=== PATIENT | male | born 1955 | race Caucasian/White ===

== ENCOUNTER 2020-03-15 08:37 | Day surgery (SDC) | payer MEDICARE ==
[~2020-03-15] VITALS: Ht 185.4 cm; Wt 77.1 kg
[~2020-03-15 08:37] MED LIST: IBUP800 PO
--- NOTE | 2020-03-15 09:44 | NUR ---
Surgical site prepped with 2% Chlorhexidine cloth wipe. History, Chart, Medications and Allergies reviewed before start of procedure. Lungs clear T/O to Auscultation. Patient confirms NPO status and agrees with scheduled surgery. Pre-Op teaching done. Pt verbalizes understanding. Patient reports completing Chlorhexadine shower X2 prior to admission to hospital. Pt NWB.
--- NOTE | 2020-03-15 10:00 | NUR ---
PROCEDURE CX PER DR. POLLOCK R/T SMALL WOUND ON RIGHT LOWER ANKLE AND TOE. OK TO BE DISCHARGED HOME. BROTHER CALLED AND WILL PROVIDE RIDE HOME.
--- NOTE | 2020-03-15 10:02 | NUR ---
TWO SMALL WOUNDS NOTED TO RIGHT LEG, ONE DIME SIZE AT ANKLE AND OPEN BLISTER ON RIGHT MIDDLE TOE. DR. POLLOCK AWARE, PROCEDURE CX
== END 2020-03-15 23:21 | disposition home or self-care (01) ==
LOC: ORSCMMR 08:37 → ORD 10:45 → ORSCMMR 10:45
DX: M17.11 Unilateral primary osteoarthritis, right knee (principal); Z53.9 Procedure and treatment not carried out, unspecified reason
CPT/HCPCS: J0171; J0690; J0735; J1885; J2250; J2704; J2795; J3010; J7120

== ENCOUNTER 2020-09-20 11:37 | Inpatient (IN) | payer MEDICARE, SELFPAY ==
[~2020-09-20] VITALS: Ht 185.4 cm; Wt 77.2 kg
[~2020-09-20 11:37] MED LIST changes: +CIDAFLEX TABLE1 EAC1 PO
--- NOTE | 2020-09-20 17:50 | NUR ---
pt arrived to room on own bed, a/o x 4, pleasant/cooperative, post op vs commenced and stable. pt provided with PO fluids/snack, denies n/v. pt oriented to room/call light. operative R knee with cryotherapy and aquacel c/d/i, calos hose and pas in place. pt with sensation at L2, unable to wiggle toes, cap refill <3 sec, toes pink/cool
[2020-09-21 04:35] LABS: BASOPHILS ABSOLUTE AUTO 0.03 K/mm3 (0.00-0.23); BASOPHILS PERCENT AUTO 0 % (0-2); EOSINOPHILS ABSOLUTE AUTO 0.01 K/mm3 (0.00-0.68); EOSINOPHILS PERCENT AUTO 0 % (0-6); Hematocrit 39.4 % (37.0-53.0); Hemoglobin 13.3 g/dL (13.5-17.5); IMMATURE GRAN ABSOLUTE AUTO 0.04 K/mm3 (0.00-0.10); IMMATURE GRAN PERCENT AUTO 0 % (0-1); LYMPHOCYTES ABSOLUTE AUTO 1.02 K/mm3 (0.84-5.20); LYMPHOCYTES PERCENT AUTO 10 % (21-46); MONOCYTES ABSOLUTE AUTO 0.83 K/mm3 (0.16-1.47); MONOCYTES PERCENT AUTO 8 % (4-13); Mean Corpuscular HGB 30.7 pg (26.0-34.0); Mean Corpuscular HGB Conc 33.8 g/dL (31.5-36.5); Mean Corpuscular Volume 91 fL (80-100); Mean Platelet Volume 9.8 fL (9.1-12.4); NEUTROPHILS ABSOLUTE AUTO 8.27 K/mm3 (1.96-9.15); NEUTROPHILS PERCENT AUTO 81 % (41-73); Platelet Count 184 K/mm3 (150-400); RDW Coefficient Variation 13.5 % (11.7-14.2); RDW Standard Deviation 46.1 fL (35.1-46.3); Red Blood Cell Count 4.33 M/mm3 (4.30-5.90)
[2020-09-21 04:53] LABS: Anion Gap 4 mmol/L (6-16); Blood Urea Nitrogen 14 mg/dL (8-24); Bun/Creatinine Ratio 22.5 (12.0-20.0); CO2, Blood 29 mmol/L (21-32); Calcium, Blood 8.3 mg/dL (8.5-10.1); Chloride, Blood 107 mmol/L (98-108); Creatinine, Blood 0.62 mg/dL (0.60-1.20); Glomerular Filtration Rate >60 (60-); Glucose, Blood 101 mg/dL (70-99); Potassium, Blood 4.3 mmol/L (3.5-5.5); Sodium, Blood 140 mmol/L (136-145)
--- NOTE | 2020-09-21 05:00 | NUR ---
AMBULATION AMBULATED TO BATHROOM WITH FWW AND GAIT BELT IN PLACE. PT IS IMPULSIVE AND UNABLE TO FOLLOW DIRECTIONS DUE TO URGECY TO MOVE FROM POINT A TO POINT B. REITERATED NEED TO USE BED TO PUSH UP AND NOT PULL UP ON WALKER. ALSO REITERATED NEED TO PLACE ONE FOOT IN FRONT OF OTHER AFTER PT'S LEGS GOT TANGLED AND HE PLACED ALL OF HIS BODY WEIGHT ON TOP OF THE WALKER. HE STATED, "I HAD TO DO THAT, I WAS ABOUT TO FALL." NURSING REITERTED NEED TO FOLLOW DIRECTIONS GIVEN BY NURSING OR PT. REQUIRES 2 PERSON MAX ASSIST. PLACED ON POTTY AND 1 UNMEASURED VOID NOTED. MAX 2 PERSON ASSIST BACK TO BED, PT TOLERATED BETTER THAN AMBULATION TO COMMODE. PLACED SELF IN BED AND REPOSITIONED WITH EASE. MEDICATED FOR PAIN PER EMAR. DENEIS FURTHER NEEDS AT THIS TIME. SAFETY MEASURES IN PLACE. WILL CONTINNUE TO MONITOR.
--- NOTE | 2020-09-21 05:22 | NUR ---
SHIFT SUMMARY LYING IN SEMI FOWLERS WITH EYES CLOSED. HAS RESTED OFF AND ON THROUGHOUT SHIFT. NO FURTHER SIGNIFICANT CHANGES NOTED. RIGHT KNEE AQUACEL WITH SMALL MOUONT OF SHADOWING AFTER AMBULATION NOTED. POLAR EVAN REMAIN IN PLACE FOR COMFORT. AMBULATION WITH FWW AND GAIT BELT TOLERATED WELL. SL PIV AFTER PT ABLE TO TOLERATE FLUIDS. DENIES N/V, OR FURTHER NEEDS AT THIS TIME. SAFETY MEASURES IN PLACE. WILL CONTINUE TO MONITOR AND GIVE HAND OFF TO ONCOMING SHIFT USING SBAR.
--- NOTE | 2020-09-21 08:32 | NUR ---
WORKING WITH PHYSICAL TX.
--- NOTE | 2020-09-21 17:55 | NUR ---
SUMMARY WORKED WITH PT/OT TODAY, 2 PERSON MAX ASSIST, OOB TO CHAIR TODAY, PT IS IMPULSIVE AND HAS POOR COORDINATION, DOESN'T SEEM TO UNDERSTAND PRECAUTIONS AND DIRECTIONS FOR SAFE TRANSFERS PER THERAPY, REPORTS PAIN IS TOLERABLE WITH PO PAIN MEDS, R KNEE DRESSING HAS BEEN DRAINING MODERATE AMOUNT OF SANGUINOUS DRAINAGE, DRESSING HAS BEEN CHANGED X3 TODAY, DR. POLLOCK AWARE, 4X4 GAUZE, ABD PAD AND NADIA WRAP APPLIED THIS EVENING, PT STATES HE HAS BEEN DOING EXERCISES IN BED INSTRUCTED BY PHYSICAL THERAPY, NO ACUTE CHANGES THIS SHIFT.
--- NOTE | 2020-09-22 05:49 | NUR ---
SHIFT ASSESSMENT LYING IN SEMI FOWLERS WITH EYES OPEN WHIE WATCHING [employer] NEWS. HAS LIGHT HEARTED ATTEMPTS TO DISCUSS HEADLINES. IS VERY CONCRETE WITH THOUGHTS AND LEARNED CARE PLAN. REITERATED TO NURSING THAT HE IS GOING TO REHAB AND GOING TO GET STRONG. AAO X4, ROSE, FAC, HAS BEEN COOPERATIVE AND PLEASANT WITH CARE. NO SIGNIFICANT CHANGES NOTED. PAIN MANAGED WITH SCHEDULED MEDS. SL PIV IS PATENT. SCD'S, LADAN, AND POLAR PAC IN PLACE. NADIA WRAP OVER AQUACELL IN PLACE. DENIES FURTHER NEEDS AT THIS TIME. SAFETY MEASURES IN PLACE. WILL CONTINUE TO MONITOR AND GIVE HAND OFF TO ONCOMING SHIFT USING SBAR.
--- NOTE | 2020-09-22 07:00 | NUR ---
RECVD REPORT FROM PREVIOUS SHIFT RN SID, PT LYING IN BED AWAKE, WISHES TO GET OOB ONTO THE COMMODE, A/O X 4, CONCRETE THINKING ABOUT THE PROCESSES OF JOINT PROGRAM; USING GB/FWW, STAND PT AT BEDSIDE TO WALK IN PLACE WITH PT'S OWN SHOES ON. L LEG WITH SHUFFLE/DRAG, OPERATIVE LEG WITH NADIA WRAP AND ABD UNDERNEATH WITH SHADOWING, NOTED SIZE OF SHADOWING AND WILL MONITOR. PT UP TO COMMODE STAND/PIVOT.
--- NOTE | 2020-09-22 15:36 | NUR ---
physical therapy in with patient
--- NOTE | 2020-09-22 17:41 | NUR ---
summary: pt remains a/o x 4, concrete in thinking, has argued with this RN about many orthopedic joint program procedures, such as being up in the chair for meals vs in bed, standing at regular intervals, incision dressing tightness, etc. pt has been educated/reminded of the program procedures. vss, no acute changes. pt has voided, is tolerating diet, is up in chair for meals, has had one visitor this shift, has worked with PT x 2 this shift. Pt states pain is controlled per aug.
--- NOTE | 2020-09-23 03:28 | NUR ---
HIMSELF AROUND IN BED."
--- NOTE | 2020-09-23 03:56 | NUR ---
SHIFT SUMMARY POD3 R TKA W/ DR. POLLOCK. PT SLEPT GOOD T/O SHIFT. NO ACUTE CHANGES OVERNIGHT EXCEPT HE HAD BEEN VOIDING. ENC PT TO VOID/STAND, USE URINAL/ BSC BUT STATED NOT FEELING TO URINATE. BLADDER SCANNED PT, RETAINING 489ML URINE, STRAIGHT CATH WITH AN OUTPUT OF 725ML. VSS. PT REPORTS PAIN ON R KNEE, PAIN MANAGED WITH TORADOL, TYLENOL AND ULISES 10MG Q4. PT DENIES NUMBNESS AND TINGLING SENSATION. TOLERATING PO INTAKE DENIES NAUSEA AND VOMITING. PASSING FLATUS. CALL LIGHT WITHIN REACH. WILL PROVIDE REPORT TO UPCOMING MORNING NURSE.
[2020-09-23 15:01] LABS: Influenza A, PCR NEGATIVE (NEGATIVE); Influenza B, PCR NEGATIVE (NEGATIVE); Resp Syncytial Virus, PCR NEGATIVE (NEGATIVE); SARS-Cov-2 (COVID-19) PCR, MMC NEGATIVE (NEGATIVE)
--- NOTE | 2020-09-23 16:43 | NUR ---
REPORT PHONED TO [facility]
--- NOTE | 2020-09-23 17:32 | NUR ---
1715 discharged via wheelchair van to transport to [facility]
== END 2020-09-23 17:31 | disposition home or self-care (01) | DRG 470 ==
LOC: ORSCMMR 11:37 → SURS 11:37 → ORSCMMR 11:38 → ORD 15:00 → ORSCMMR 15:00 → SURS 17:37 → ORSCMMR 09-21 15:53 → SURS 09-21 15:53
PROVIDERS: ADMIT Orthopaedic Surgery
PROC: 8E0Y0CZ Robotic Assisted Procedure of Lower Extremity, Open Approach (ICD-10-PCS; 2020-09-20)
PROC: 0SRC0J9 Replacement of Right Knee Joint with Synthetic Substitute, Cemented, Open Approach (ICD-10-PCS; principal; 2020-09-20 15:00)
DX: M17.11 Unilateral primary osteoarthritis, right knee (principal); M21.371 Foot drop, right foot
CPT/HCPCS: 0241U; 36415; 73560-RT; 80048; 83735; 85025; 97110; 97110-CQ; 97112; 97116; 97162; 97530; 97530-CQ; A9270; C1713; C1776; J0171; J0690; J0735; J1100; J1885; J2250; J2405; J2704; J2795; J3010; J7120

== ENCOUNTER 2022-06-03 14:24 | Inpatient (IN) | payer MEDICARE ==
[~2022-06-03] VITALS: Ht 180.3 cm; Wt 81.7 kg
[2022-06-03 22:16] LABS: Influenza A, PCR NEGATIVE (NEGATIVE); Influenza B, PCR NEGATIVE (NEGATIVE); Resp Syncytial Virus, PCR NEGATIVE (NEGATIVE); SARS-Cov-2 (COVID-19) PCR, MMC NEGATIVE (NEGATIVE)
--- NOTE | 2022-06-04 16:57 | NUR ---
1555- PT TO PACU TO GET READY FOR OR. TURNS OUT THE PATIENT HAD MEATLOAF AND CARROTS AT 1 PM. SURGERY POSTPONED TO TOMORROW.
--- NOTE | 2022-06-04 18:40 | NUR ---
SHIFT SUMMARY PT A&OX4, VSS/RA, JAZMINE PO, VOIDING/URINAL, BEDREST, DENIES NEED FOR PAIN MEDS AT THIS TIME. PLAN FOR SURGERY TOMORROW/NPO MIDNIGHT. WILL REPORT TO ONCOMING NOC RN.
--- NOTE | 2022-06-05 05:27 | NUR ---
SHIFT SUMMARY A/OX3- BEDREST THROUGHOUT THE SHIFT. VOIDING WELL IN URINAL. VITAL SIGNS STABLE. PAIN MANAGED W/ PO PAIN MEDICATION THROUGHOUT SHIFT. NPO SINCE MIDNIGHT. BUCKS TRACTION PLACED AT BEGINING OF SHIFT PER SURGEON ORDER. PLAN FOR PT TO GO TO OR TODAY. WILL CONTINUE TO MONITOR AND REPORT TO ONCOMING RN.
[2022-06-05 05:47] LABS: BASOPHILS ABSOLUTE AUTO 0.07 K/mm3 (0.00-0.23); BASOPHILS PERCENT AUTO 1 % (0-2); EOSINOPHILS ABSOLUTE AUTO 0.21 K/mm3 (0.00-0.68); EOSINOPHILS PERCENT AUTO 3 % (0-6); Hematocrit 36.6 % (37.0-53.0); Hemoglobin 12.7 g/dL (13.5-17.5); IMMATURE GRAN ABSOLUTE AUTO 0.03 K/mm3 (0.00-0.10); IMMATURE GRAN PERCENT AUTO 0 % (0-1); LYMPHOCYTES ABSOLUTE AUTO 0.86 K/mm3 (0.84-5.20); LYMPHOCYTES PERCENT AUTO 10 % (21-46); MONOCYTES ABSOLUTE AUTO 0.86 K/mm3 (0.16-1.47); MONOCYTES PERCENT AUTO 10 % (4-13); Mean Corpuscular HGB 30.8 pg (26.0-34.0); Mean Corpuscular HGB Conc 34.7 g/dL (31.5-36.5); Mean Corpuscular Volume 89 fL (80-100); Mean Platelet Volume 9.4 fL (9.1-12.4); NEUTROPHILS ABSOLUTE AUTO 6.22 K/mm3 (1.96-9.15); NEUTROPHILS PERCENT AUTO 76 % (41-73); Platelet Count 176 K/mm3 (150-400); RDW Coefficient Variation 13.2 % (11.7-14.2); RDW Standard Deviation 42.8 fL (35.1-46.3); Red Blood Cell Count 4.13 M/mm3 (4.30-5.90); White Blood Cell Count 8.25 K/mm3 (4.00-11.30)
[2022-06-05 06:09] LABS: Albumin, Blood 2.8 g/dL (3.4-5.0); Bilirubin, Total 1.2 mg/dL (0.1-1.0); Bun/Creatinine Ratio 31.1 (12.0-20.0); Calcium, Blood 8.2 mg/dL (8.5-10.1); Creatinine, Blood 0.58 mg/dL (0.60-1.20); Globulin, Blood 2.8 g/dL (2.2-4.0); Magnesium, Blood 2.1 mg/dL (1.6-2.4); Potassium, Blood 4.4 mmol/L (3.5-5.5); Total Protein, Blood 5.6 g/dL (6.4-8.2)
--- NOTE | 2022-06-05 16:47 | NUR ---
SHIFT SUMMARY PT ADMITTED FOR L HIP DISLOCATION. PT'S CASE REQUIRES A HIGHER LEVEL OF CARE AND HE IS TO BE TRASFERRED TO [facility] WHEN A BED IS AVAILABLE. BUCKS TRACTION REMOVED DUE TO PATIENT DISCOMFORT. PT IS UNABLE TO GO HOME TO FOLLOW UP OUTPATIENT BECAUSE HE IS UNABLE TO MOVE HIS LEFT LEG AND CANNOT MANEUVER A WHEELCHAIR IN HIS CURRENT HOUSING CONDITIONS. PT IS A/O X4; PLEASANT AND COOPERATIVE WITH CARE. TREATED FOR PAIN PER EMR.
--- NOTE | 2022-06-06 05:16 | NUR ---
SHIFT SUMMARY A/O X4- BEDREST THROUGHOUT SHIFT. VITAL SIGNS STABLE. PAIN MANAGED W/ PO PAIN MEDICATIONS. VOIDING WELL. TOLERATING PO INTAKE. AWAITING TRANSFER TO ANOTHER HOSPITAL FOR SURGERY OF L HIP. WILL CONTINUE TO MONITOR AND REPORT TO ONCOMING RN.
--- NOTE | 2022-06-07 04:00 | NUR ---
SHIFT SUMMARY NO ACUTE CHANGES TO REPORT THIS SHIFT, LEFT HIP PAIN MANANGED PER EMAR. STILL AWAITING TRANSFER TO HIGHER LEVEL OF CARE TO FURTHER MANAGE DISLOACTED HIP. VITALS STABLE. PT SLEEPS ON AND OFF T/O THE NIGHT. BED IN LOWEST POSITION, CALL LIGHT WITHIN REACH.
[2022-06-07 06:02] LABS: BASOPHILS ABSOLUTE AUTO 0.06 K/mm3 (0.00-0.23); BASOPHILS PERCENT AUTO 1 % (0-2); EOSINOPHILS ABSOLUTE AUTO 0.21 K/mm3 (0.00-0.68); EOSINOPHILS PERCENT AUTO 3 % (0-6); Hematocrit 38.4 % (37.0-53.0); Hemoglobin 13.3 g/dL (13.5-17.5); IMMATURE GRAN ABSOLUTE AUTO 0.02 K/mm3 (0.00-0.10); IMMATURE GRAN PERCENT AUTO 0 % (0-1); LYMPHOCYTES ABSOLUTE AUTO 1.06 K/mm3 (0.84-5.20); LYMPHOCYTES PERCENT AUTO 13 % (21-46); MONOCYTES ABSOLUTE AUTO 0.95 K/mm3 (0.16-1.47); MONOCYTES PERCENT AUTO 12 % (4-13); Mean Corpuscular HGB 30.8 pg (26.0-34.0); Mean Corpuscular HGB Conc 34.6 g/dL (31.5-36.5); Mean Corpuscular Volume 89 fL (80-100); Mean Platelet Volume 9.6 fL (9.1-12.4); NEUTROPHILS ABSOLUTE AUTO 5.76 K/mm3 (1.96-9.15); NEUTROPHILS PERCENT AUTO 72 % (41-73); Platelet Count 196 K/mm3 (150-400); RDW Coefficient Variation 13.1 % (11.7-14.2); RDW Standard Deviation 42.8 fL (35.1-46.3); Red Blood Cell Count 4.32 M/mm3 (4.30-5.90); White Blood Cell Count 8.06 K/mm3 (4.00-11.30)
[2022-06-07 06:23] LABS: Albumin, Blood 2.9 g/dL (3.4-5.0); Albumin/Globulin Ratio 0.9 (0.8-1.8); Bun/Creatinine Ratio 36.4 (12.0-20.0); Calcium, Blood 8.5 mg/dL (8.5-10.1); Creatinine, Blood 0.61 mg/dL (0.60-1.20); Globulin, Blood 3.3 g/dL (2.2-4.0); Potassium, Blood 4.5 mmol/L (3.5-5.5); Total Protein, Blood 6.2 g/dL (6.4-8.2)
--- NOTE | 2022-06-07 14:39 | NUR ---
PT RESTING IN BED, DENIES ANY NEED FOR PAIN MEDS THIS TIME, REPORT GIVEN TO PETER MENDOZA TO ASSUME CARE OF PT.
--- NOTE | 2022-06-08 05:07 | NUR ---
SHIFT SUMMARY NO ACUTE CHANGES TO REPORT THI SHIFT, PLAN OF CARE REMAINS UNCHANGED. PENDING [place] TRANSFER STILL WAITING FOR BED AT [facility]. PT MEDICATED FOR PAIN PRN T/O THE SHIFT. BEDREST, CALLS APPROPRIATELY. BED IN LOWEST POSITION, CALL LIGHT WITHIN REACH.
--- NOTE | 2022-06-08 18:26 | NUR ---
SHIFT SUMMARY PT A&OX4, VSS/RA, JAZMINE PO, VOIDING/URINAL, PAIN MANAGED WITH TYLENOL AND OXY 5 MG PRN, STAND PIVOT W/FWW TO CHAIR/BED W/2PP MAX ASSIST. WILL REPORT TO ONCOMING NOC RN.
--- NOTE | 2022-06-08 23:05 | NUR ---
DISCUSSED BUCKS TRACTION WITH THE PATIENT, PT REFUSED. DISCUSSED IV AND PT REFUSED. STATES THAT HE DOES NOT NEED ONE. ENCOURAGED REPOSITIONING AND PT EXPRESSED THAT HE WAS NOT WANTING TO BE TURNED OR REPOSITIONED Q2 HOURS. ENCOURAGED THE PT TO USE CALL LIGHT.
--- NOTE | 2022-06-09 05:24 | NUR ---
SHIFT SUMMARY: A&0. PAIN MODERATELY MANAGED PER EMAR ORDERS AND REPOSITIONING. PT REFUSED MAJORITY OF REPOSITION ATTEMPTS T/O THE NIGHT. EATING, DRINKING, AND VOIDING. YET TO HAVE A BM, BOWEL CARE CONTINUED. NO ACUTE CHANGES NOTED. PT REMAINS IN BED RESTING WITH CALL LIGHT IN REACH. AWAITING TRANSFER TO HIGHER LEVEL CARE.
--- NOTE | 2022-06-09 18:52 | NUR ---
SHIFT SUMMARY PT A&OX4, VSS/RA, JAZMINE PO, VOIDING/URINAL, PAIN MANAGED WITH TYLENOL AND OXY 10 MG Q4P. BEDREST/REPOSITIONS SELF. WILL REPORT TO ONCOMING SUNIL RN.
--- NOTE | 2022-06-10 04:44 | NUR ---
SHIFT SUMMARY NO ACUTE CHANGES THIS SHIFT. AOX4. REPORTS 4-6/10 PAIN IN L HIP, MEDICATED 2X c 10MG OXYCODONE, STATES PAIN RELIEF LONG NO MOVEMENT. LLE INTERNALLY ROTATED, REPORTS CHRONIC NUMBNESS & INABILITY TO WIGGLE TOES. AWAITING BED AVAILABILITY @[facility]. PT ABLE TO MAKE NEEDS KNOWN, CALL LIGHT IN REACH.
--- NOTE | 2022-06-10 15:14 | NUR ---
PT HAD ORDERS FOR BUX TRACTION, REFUSED
--- NOTE | 2022-06-10 17:52 | NUR ---
PT STATES FEELS DOING OKAY TODAY. PAIN MANAGED WITH AVAIL MEDS. HAVE BEEN REMINDING HIM TO PLACE PILLOW BETWEEN BED FOOTRAIL AND HIS FOOT FOR REINFORCEMENT OF DROPFOOT. KEEPING HIS FOOT FROM TURNING INTERNAL ROTATION. DR DID AGREE TO MAKE HIM NO IV ORDER. PT HS BEEN REFUSING LEG BRIX . CONTINUE TO PEND TRANSFER TO [facility] FOR FURTHER WORKUP. BED IN LOW POSITION, CALL LITE IN REACH, CALLS APPROP
--- NOTE | 2022-06-11 05:35 | NUR ---
SHIFT SUMMARY NO ACUTE CHANGES THIS SHIFT. AOX4. VSS. REPORTS 6-10/10 PAIN IN L HIP DISLOCATION, MEDICATED 2X c 650MG TYLENOL & 3X c 10MG OXYCODONE, PT ABLE TO REST COMFORTABLY AFTER MEDICATION & REPOSITIONING. L LEG INTERNALLY ROTATED, CAP REFIL @4 SEC, REPORTS CHRONIC NUMBNESS & COLD TOES. AWAITING BED @[facility]. CALL LIGHT IN REACH & PT ABLE TO MAKE NEEDS KNOWN.
--- NOTE | 2022-06-11 15:27 | NUR ---
SHIFT SUMMARY: LEFT HIP DISLOCATION NO SIGNIFICANT CHANGES. PATIENT WAS ABLE TO SIT ON THE SIDE OF THE BED AND TOLERATED IT WELL. PAIN IS MANAGED WITH OXY AND TYLENOL. PATIENT DENIES ANY NEW NUMBNESS OR TINGLING SINCE HE HAS A HX OF NEUROPATHY. HE IS VOIDING AND TOLERATING PO INTAKE. PATIENT REPORTS HAVING A BM YESTERDAY. CALLS APPROPRIATELY. CALL LIGHT WITHIN REACH. THE PLAN IS STILL AWAITING A BED AT [facility] IN [place].
--- NOTE | 2022-06-11 19:21 | NUR ---
NO ACUTE CHANGES SINCE ASSUMPTION OF CARE, PT RESTING IN BED. CONTINUES TO DENY FURTHER NEEDS. REPORTS PAIN MANAGED PER EMAR.
--- NOTE | 2022-06-12 05:33 | NUR ---
SHIFT SUMMARY NO ACUTE CHANGES THIS SHIFT. VSS. REPORTS 6-910 PAIN IN L HIP DISLOCATION, MEDICATED c PRN TYLENOL & 10MG OXYCODONE & PT ABLE TO REST WELL. AWAITING BED @[facility] FOR L HIP REPAIR. L FOOT ELEVATED ON PILLOW. CALL LIGHT IN REACH & PT ABLE TO MAKE NEEDS KNOWN.
--- NOTE | 2022-06-12 17:06 | NUR ---
SHIFT SUMMARY PT A&OX4, VSS/RA, JAZMINE PO, VOIDING WELL/URINAL, PAIN MANAGED WELL WITH 10 OXY AND TYLENOL, STAND PIVOT WITH 3 PP MAX ASSIST TO CHAIR/BACK TO BED-VERY HEAVY TRANSFER; PT REP COMFORTABLE IN CHAIR DURING DAY, REPOSITIONS SELF IN BED. PLEASANT & COOPERATIVE WITH CARE. WILL REPORT TO ONCOMING NOC RN.
--- NOTE | 2022-06-13 06:18 | NUR ---
SHIFT SUMMARY NO ACUTE CHANGES THIS SHIFT. AOX4. VSS. L HIP DISLOCATED. REPORTS PAIN IN BILAT HIPS/LEGS, MEDICATED 3X c OXYCODONE & 1X c TYLENOL, PT ABLE TO REST WELL T/O NIGHT. AWAITING BED @[facility] FOR HIP REPAIR. CALL LIGHT IN REACH & PT ABLE TO MAKE NEEDS KNOWN.
--- NOTE | 2022-06-13 14:35 | NUR ---
SHIFT SUMMARY PT A&OX4, VSS/RA, JAZMINE PO, VOIDING WELL/BMS++ TODAY - STOOL SOFTENER ORDERS CHANGED TO PRN, LIFT USED FOR BED/CHAIR; PT REPOSITIONS SELF IN BED AND DOES REGULAR PHYSICAL THERAPY EXERCISES, PAIN MANAGED WITH OXY 10 MG AND TYLENOL. WILL REPORT TO ONCOMING NOC RN.
[2022-06-14 05:10] LABS: BASOPHILS ABSOLUTE AUTO 0.08 K/mm3 (0.00-0.23); BASOPHILS PERCENT AUTO 1 % (0-2); EOSINOPHILS ABSOLUTE AUTO 0.19 K/mm3 (0.00-0.68); EOSINOPHILS PERCENT AUTO 2 % (0-6); IMMATURE GRAN ABSOLUTE AUTO 0.03 K/mm3 (0.00-0.10); IMMATURE GRAN PERCENT AUTO 0 % (0-1); LYMPHOCYTES ABSOLUTE AUTO 1.08 K/mm3 (0.84-5.20); LYMPHOCYTES PERCENT AUTO 13 % (21-46); MONOCYTES ABSOLUTE AUTO 1.04 K/mm3 (0.16-1.47); MONOCYTES PERCENT AUTO 12 % (4-13); Mean Corpuscular HGB 30.6 pg (26.0-34.0); Mean Corpuscular HGB Conc 34.3 g/dL (31.5-36.5); Mean Corpuscular Volume 89 fL (80-100); NEUTROPHILS ABSOLUTE AUTO 6.15 K/mm3 (1.96-9.15); NEUTROPHILS PERCENT AUTO 72 % (41-73); Platelet Count 270 K/mm3 (150-400); RDW Coefficient Variation 12.9 % (11.7-14.2); RDW Standard Deviation 41.8 fL (35.1-46.3); Red Blood Cell Count 3.92 M/mm3 (4.30-5.90); White Blood Cell Count 8.57 K/mm3 (4.00-11.30)
--- NOTE | 2022-06-14 05:17 | NUR ---
SHIFT SUMMARY: A&0X4. VSS. IND IN ROOM WITH REPOSITIONING, REQUIRES MODERATE ASSISTANCE TO REPOSITION BLE. MEDICATED WITH OXYCODONE 10 MG AND TYLENOL, RESPONDED WELL. ENCOURAGED REGULAR REPOSITIONING. X4 SMALL/SOFT BM THIS SHIFT. CALLS APPROPRIATELY. EATING, DRINKING, VOIDING. AWAITING TRANSFER TO HIGHER LEVEL CARE.
[2022-06-14 05:32] LABS: Bun/Creatinine Ratio 37.8 (12.0-20.0); Calcium, Blood 8.6 mg/dL (8.5-10.1); Creatinine, Blood 0.56 mg/dL (0.60-1.20); Potassium, Blood 4.7 mmol/L (3.5-5.5)
--- NOTE | 2022-06-14 08:07 | NUR ---
TRANSFER UPDATE CALL FROM [facility] TRANSFER [place], PATIENT REMAINS ON LIST WITH NO FORECAST FOR PLACEMENT THEY CONTINUE TO BE FULL & HOLDING PATIENTS.
--- NOTE | 2022-06-14 16:06 | NUR ---
SHIFT SUMMARY: NO SIGNIFICANT CHANGES THROUGHOUT SHIFT. PAIN IS MANAGED WITH PO OXY AND TYLENOL. LEFT HIP IS SWOLLEN AND HE NEEDS HELP REPOSITIONING HIS LEFT LEG. HE IS ABLE TO MOVE FINGERS AND TOES WHEN ASKED. HE IS A MINIMAL ASSIST ON BEDPAN AND HE WILL REPOSITION HIMSELF IN BED. HE IS VOIDING AND HAVING MULTIPLE SOFT BMS DURING SHIFT. TOLERATING PO INTAKE. CALLS APPROPRIATELY. CALL LIGHT WITHIN REACH.
--- NOTE | 2022-06-15 04:47 | NUR ---
SHIFT SUMMARY A/O X4- BEDREST THROUGHOUT THE SHIFT. PT REPORTS PAIN IN L HIP AND BACK, MANAGED W/ PO PAIN MEDICATIONS. VOIDING WELL IN URINAL. NO BM THIS SHIFT, TOLERATING PO INTAKE. VITAL SIGNS STABLE. AWAITING TRANSFER TO ANOTHER HOSPITAL FOR L HIP SURGERY. PT PLEASANT AND COOPERATIVE. WILL CONTINUE TO MONITOR AND REPORT TO ONCOMING RN.
--- NOTE | 2022-06-15 10:46 | NUR ---
OUTPATIENT APPOINTMENT INFORMATION SENT TO [facility] TO ATTEMPT TO SECURE OUTPATIENT APPOINTMENT FOR PATIENT. AWAITING RETURN CALL.
--- NOTE | 2022-06-15 19:38 | NUR ---
SHIFT SUMMARY S/P L HIP DISLOCATION, A/OX 4, VSS, TOLERATING PO, PT WAITING TRANSFER TO HIGHER LEVEL CARE FACILITY WHEN BED AVAILABLE, PT WAS UP TO HIS CHIAR USING A SLIDER BOARD WHICH WAS TOLERATED WELL. NO ACUTE EVENTS THIS SHIFT, REPORT GIVEN TO SUNIL GREEN.
[2022-06-16 04:57] LABS: BASOPHILS ABSOLUTE AUTO 0.08 K/mm3 (0.00-0.23); BASOPHILS PERCENT AUTO 1 % (0-2); EOSINOPHILS PERCENT AUTO 2 % (0-6); Hematocrit 36.5 % (37.0-53.0); Hemoglobin 12.6 g/dL (13.5-17.5); IMMATURE GRAN ABSOLUTE AUTO 0.06 K/mm3 (0.00-0.10); IMMATURE GRAN PERCENT AUTO 1 % (0-1); LYMPHOCYTES ABSOLUTE AUTO 1.31 K/mm3 (0.84-5.20); LYMPHOCYTES PERCENT AUTO 15 % (21-46); MONOCYTES ABSOLUTE AUTO 0.92 K/mm3 (0.16-1.47); MONOCYTES PERCENT AUTO 10 % (4-13); Mean Corpuscular HGB 30.8 pg (26.0-34.0); Mean Corpuscular HGB Conc 34.5 g/dL (31.5-36.5); Mean Corpuscular Volume 89 fL (80-100); Mean Platelet Volume 8.9 fL (9.1-12.4); NEUTROPHILS ABSOLUTE AUTO 6.44 K/mm3 (1.96-9.15); NEUTROPHILS PERCENT AUTO 72 % (41-73); Platelet Count 307 K/mm3 (150-400); RDW Coefficient Variation 13.1 % (11.7-14.2); RDW Standard Deviation 42.6 fL (35.1-46.3); Red Blood Cell Count 4.09 M/mm3 (4.30-5.90); White Blood Cell Count 9.01 K/mm3 (4.00-11.30)
[2022-06-16 05:24] LABS: Bun/Creatinine Ratio 35.6 (12.0-20.0); Calcium, Blood 8.6 mg/dL (8.5-10.1); Creatinine, Blood 0.53 mg/dL (0.60-1.20); Potassium, Blood 4.3 mmol/L (3.5-5.5)
--- NOTE | 2022-06-16 05:29 | NUR ---
SKIVER BOX TOE SUMMARY NO ACUTE CHANGES THIS SHIFT. PT AAOX4 AND PLEASANT. MEDICATED FOR PAIN WITH OXYCODONE 2 TABS MULTIPLE TIMES THROUGHOUT THE SHIFT. AT START OF SHIFT WHILE PATIENT SERVICES REPRESENTATIVE WAS GETTING PTS VITAL SIGNS PT WAS TALKING ABOUT HOW HE MAY HAVE TO GO TO A USP AND STATED "I'D RATHER JUST SHOOT MYSELF THAN GO TO A USP" PER THE PATIENT SERVICES REPRESENTATIVE. THIS RN WENT IN TO ASSESS PT FOR SI. PT HAD A NEGATIVE [place] SCREENING, STATED THAT HE WAS JUST FRUSTRATED AND MADE A POOR JOKE REGARDING THE SITUATION. PT HAS NO PLAN. PT WAS UPSET THAT WE THOUGHT HE WAS BEING SERIOUS AND APOLOGIZED TO THIS RN AND THE PATIENT SERVICES REPRESENTATIVE. VSS, WILL CONTINUE TO MONITOR.
--- NOTE | 2022-06-16 10:37 | NUR ---
[facility] CONTACTED RE OUTPT APPOINTMENT. PER SCHEDULING MEDICAL RECORDS ARE STILL BEING REVIEWED. WILL CONTINUE TO AWAIT CALL BACK
--- NOTE | 2022-06-16 12:20 | NUR ---
SPOKE WITH TRANSFER LINE WITH [facility] AND NO ETA ON BED WAIT TIME FOR [facility]. 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
--- NOTE | 2022-06-16 16:07 | NUR ---
TRANSFER COORIDINATOR CONTACED AT [facility] FOR BED AVIALABILITY BOTH THIS MORNING AND AFTERNOON. AT THIS TIME THERE ARE NO BEDS AVAILABLE, NOT CURRENTLY KEEPING A LIST. HOWEVER, RECOMENDED THAT WE CALL DAILY TO CHECK FOR [facility] ( ). IF BED BECOMES AVAILIBLE WE WOULD THEN NEED TO HAVE MD CALL AND GET ACCEPTING MD AND ORTHO FOR CONSULT. THIS INFO WAS PASSED ALONG TO CARE [facility]. ALSO SHOLD BE CALLING EACH DAY TO [facility] ( ) TO CHECK CURRENT STATUS ON LIST. SEE MODELING AGENT NOTE FOR INFO ON [facility]. PT UPDATED.
--- NOTE | 2022-06-16 19:02 | NUR ---
SHIFT SUMMARY S/P L HIP DISLOCATION, PT IN BED T/O THE SHIFT AFTER [facility] STRESSED NO ROM IN AFFECTED HIP. TRANSFER CENTERS CONTACTED WITH NO OPEN BEDS AT THIS TIME, PT STILL PENDING XFER TO [facility] OR ACCEPTING PHYSICIAN. NO ACUTE EVENTS THIS SHIFT, CALL LIGHT IN REACH, WILL CTM AND REPORT TO ONCOMING NOC RN.
--- NOTE | 2022-06-17 04:50 | NUR ---
SHIFT SUMMARY PT A&0X4, PLEASANT AND COOPERATIVE WITH CARE. NO ACUTE CHANGES, VSS. MEDICATING FOR PAIN PER EMAR. VOIDING USING BEDSIDE URINAL. TOLERATING PO INTAKE. CALLS APPROPRIATELY, CALL LIGHT WITHIN REACH.
--- NOTE | 2022-06-17 11:08 | NUR ---
[facility] CALL[facility]ED [facility] THAT PT STILL NEEDS BED WHEN AVAILABLE.
--- NOTE | 2022-06-17 16:17 | NUR ---
SHIFT SUMMARY: LEFT HIP DISLOCATION NO SIGNIFICANT CHANGES DURING SHIFT. PATIENTS PAIN IS MANAGED WITH PO TYLENOL AND OXY. A NEW MEPILEX WAS PLACED ON COCCYX A PREVENTATIVE. THERE WAS NO REDNESS ON HIS COCCYX. LEFT LEG IS SORE BUT HE IS ABLE TO DO BED EXERCISES. DENIES NUMBNESS OR TINGLING IN ALL EXTREMITIES. HE IS TOLERATING PO INTAKE AND IS VOIDING/PASSING GAS/HAVING BMS. CALLS APPROPRIATELY. CALL LIGHT WITHIN REACH. THE PLAN IS STILL WAITING FOR A BED TO OPEN UP AT [facility]. THIS NURSE CALLED THIS MORNING AND AT 1530 TODAY FOR AN UPDATE AND PATIENT IS STILL ON THE WAIT LIST WITH NO BEDS AVAILABLE.
--- NOTE | 2022-06-18 04:29 | NUR ---
SHIFT SUMMARY PT A&OX4, AND COOPERATIVE WITH CARE. MEDICATING FOR PAIN WITH TYLENOL/OXY. VOIDING USING URINAL/BEDPAN. HAD A SMALL BM. TOLERATING PO INTAKE. MEPILEX ON COCCYX PREVENTATIVE MEASURE. CALLS APPROPRIATELY, CALL LIGHT WITHIN REACH. PT STILL WAITING FOR TRANSFER TO HIGHER LEVEL OF CARE FACILITY OR ACCEPTING PHYSICIAN.
--- NOTE | 2022-06-18 18:29 | NUR ---
SHIFT SUMMARY PATIENT ALERT AND ORIENTED THROUGHOUT SHIFT. BEDREST, REPOSITIONS SELF IN BED EASILY. CALLS APPROPRIATELY FOR BEDPAN AND PAIN MEDS. LEFT LEG IS SHORTENED AND CALF IS ELEVATED ON PILLOW. REPORTS FULL SENSATION, CAP REFILL WNL. TOLERATING REGULAR DIET AND LIQUIDS. VOIDING WELL WITH URINAL. WAITING FOR TRANSFER TO ANOTHER FACILITY.
--- NOTE | 2022-06-19 04:42 | NUR ---
SHIFT SUMMARY PT A&OX4, AND COOPERATIVE WITH CARE. MEDICATING FOR PAIN PER EMAR. ABLE TO REPOSITION SELF IN BED INDEPENDENTLY. USING BEDSIDE URINAL/BEDPAN TO VOID. TOLERATING PO INTAKE. CALLS APPROPRIATELY, CALL LIGHT WITHIN REACH. STILL AWAITING TRANSFER TO HIGHER LEVEL OF CARE FACILITY OR ACCEPTING PHYSICIAN.
[2022-06-19 09:06] LABS: BASOPHILS ABSOLUTE AUTO 0.09 K/mm3 (0.00-0.23); BASOPHILS PERCENT AUTO 1 % (0-2); EOSINOPHILS ABSOLUTE AUTO 0.15 K/mm3 (0.00-0.68); EOSINOPHILS PERCENT AUTO 2 % (0-6); Hematocrit 37.6 % (37.0-53.0); Hemoglobin 13.1 g/dL (13.5-17.5); IMMATURE GRAN ABSOLUTE AUTO 0.05 K/mm3 (0.00-0.10); IMMATURE GRAN PERCENT AUTO 1 % (0-1); LYMPHOCYTES ABSOLUTE AUTO 1.07 K/mm3 (0.84-5.20); LYMPHOCYTES PERCENT AUTO 12 % (21-46); MONOCYTES ABSOLUTE AUTO 0.53 K/mm3 (0.16-1.47); MONOCYTES PERCENT AUTO 6 % (4-13); Mean Corpuscular HGB 30.8 pg (26.0-34.0); Mean Corpuscular HGB Conc 34.8 g/dL (31.5-36.5); Mean Corpuscular Volume 88 fL (80-100); Mean Platelet Volume 8.7 fL (9.1-12.4); NEUTROPHILS ABSOLUTE AUTO 7.07 K/mm3 (1.96-9.15); NEUTROPHILS PERCENT AUTO 79 % (41-73); Platelet Count 301 K/mm3 (150-400); RDW Coefficient Variation 13.1 % (11.7-14.2); RDW Standard Deviation 42.4 fL (35.1-46.3); Red Blood Cell Count 4.26 M/mm3 (4.30-5.90); White Blood Cell Count 8.96 K/mm3 (4.00-11.30)
[2022-06-19 09:27] LABS: Albumin/Globulin Ratio 0.9 (0.8-1.8); Bilirubin, Total 0.7 mg/dL (0.1-1.0); Bun/Creatinine Ratio 34.9 (12.0-20.0); Calcium, Blood 8.8 mg/dL (8.5-10.1); Creatinine, Blood 0.54 mg/dL (0.60-1.20); Globulin, Blood 3.2 g/dL (2.2-4.0); Magnesium, Blood 1.8 mg/dL (1.6-2.4); Potassium, Blood 4.4 mmol/L (3.5-5.5); Total Protein, Blood 6.2 g/dL (6.4-8.2)
--- NOTE | 2022-06-19 18:47 | NUR ---
SUMMARY NO ACUTE CHANGES NOTED, VSS, A&O X4, RESP UNLABORED, RA, TOLERATING PO INTAKE, VOIDING WNL, PAIN MEDICATED PER EMAR PRN, CIRC TO BLE WNL, DENIES N/T, MAINTAINED BEDREST. CALL LIGHT IN REACH
--- NOTE | 2022-06-20 04:13 | NUR ---
SHIFT SUMMARY PT A&OX4, AND COOPERATIVE WITH CARE. NOT ACUTE CHANGES. MEDICATING FOR PAIN PER EMAR. PT REMAINS ON BEDREST. USING BEDSIDE URINAL/BEDPAN TO VOID. TOLERATING PO INTAKE. CALLS APPROPRIATELY, CALL LIGHT WITHIN REACH. PLAN IS TO TRANSFER TO A HIGHER LEVEL OF CARE FACILITY OR ACCEPTING PHYSICIAN TO PERFORM NECESSARY HIP REVISION.
[2022-06-20 06:08] LABS: BASOPHILS ABSOLUTE AUTO 0.09 K/mm3 (0.00-0.23); BASOPHILS PERCENT AUTO 1 % (0-2); EOSINOPHILS PERCENT AUTO 2 % (0-6); Hematocrit 35.8 % (37.0-53.0); Hemoglobin 12.3 g/dL (13.5-17.5); IMMATURE GRAN ABSOLUTE AUTO 0.05 K/mm3 (0.00-0.10); IMMATURE GRAN PERCENT AUTO 1 % (0-1); LYMPHOCYTES ABSOLUTE AUTO 1.25 K/mm3 (0.84-5.20); LYMPHOCYTES PERCENT AUTO 15 % (21-46); MONOCYTES ABSOLUTE AUTO 0.92 K/mm3 (0.16-1.47); MONOCYTES PERCENT AUTO 11 % (4-13); Mean Corpuscular HGB 30.5 pg (26.0-34.0); Mean Corpuscular HGB Conc 34.4 g/dL (31.5-36.5); Mean Corpuscular Volume 89 fL (80-100); Mean Platelet Volume 8.9 fL (9.1-12.4); NEUTROPHILS ABSOLUTE AUTO 6.02 K/mm3 (1.96-9.15); NEUTROPHILS PERCENT AUTO 71 % (41-73); Platelet Count 315 K/mm3 (150-400); RDW Coefficient Variation 12.9 % (11.7-14.2); RDW Standard Deviation 42.5 fL (35.1-46.3); Red Blood Cell Count 4.03 M/mm3 (4.30-5.90); White Blood Cell Count 8.53 K/mm3 (4.00-11.30)
[2022-06-20 06:35] LABS: Bun/Creatinine Ratio 38.3 (12.0-20.0); Calcium, Blood 8.5 mg/dL (8.5-10.1); Creatinine, Blood 0.63 mg/dL (0.60-1.20); Potassium, Blood 4.8 mmol/L (3.5-5.5)
--- NOTE | 2022-06-20 09:53 | NUR ---
DR VARGAS CALLED SPOKE WITH THIS RN. AGREED TO ACCEPT PT W/HOSPITALIST CONSULT AT [facility]. SPOKE WITH [facility] [place] COORDINATOR, PLACED ON "ORTHO WAIT LIST" FACE SHEET FAXED TO [facility]. DR LOPES AND PT UPDATED.
--- NOTE | 2022-06-20 18:49 | NUR ---
SHIFT SUMMARY PT ACCEPTED BY [facility] [place] AND IS CURRENTLY WAITING FOR A ROOM AT [place] AFTER BEING ADDED TO THE WAITLIST. PT IS A/O X4; PLEASANT AND COOPERATIVE WITH CARE. VSS AND PAIN CONTROLLED PER EMR.
--- NOTE | 2022-06-21 04:17 | NUR ---
SHIFT SUMMARY NO ACUTE CHANGES THIS SHIFT. LEFT LOWER EXT REMAINS INTERNALLY ROTATED AND ELEVATED ON PILLOWS. PT CAN SLIGHTLY REPOSITION SELF IN BED INDEPENDENTLY. 2 ROXICODONE FOR PAIN MANAGEMENT. USING URINAL TO VOID. VSS. USES CALL LIGHT APPROPRIATELY. WAITING ON BED AVAILABILITY AT [facility].
[2022-06-21 04:48] LABS: BASOPHILS ABSOLUTE AUTO 0.06 K/mm3 (0.00-0.23); BASOPHILS PERCENT AUTO 1 % (0-2); EOSINOPHILS ABSOLUTE AUTO 0.22 K/mm3 (0.00-0.68); EOSINOPHILS PERCENT AUTO 3 % (0-6); Hematocrit 38.5 % (37.0-53.0); Hemoglobin 13.3 g/dL (13.5-17.5); IMMATURE GRAN ABSOLUTE AUTO 0.05 K/mm3 (0.00-0.10); IMMATURE GRAN PERCENT AUTO 1 % (0-1); LYMPHOCYTES ABSOLUTE AUTO 1.11 K/mm3 (0.84-5.20); LYMPHOCYTES PERCENT AUTO 14 % (21-46); MONOCYTES ABSOLUTE AUTO 0.82 K/mm3 (0.16-1.47); MONOCYTES PERCENT AUTO 10 % (4-13); Mean Corpuscular HGB 30.5 pg (26.0-34.0); Mean Corpuscular HGB Conc 34.5 g/dL (31.5-36.5); Mean Corpuscular Volume 88 fL (80-100); Mean Platelet Volume 8.7 fL (9.1-12.4); NEUTROPHILS ABSOLUTE AUTO 5.62 K/mm3 (1.96-9.15); NEUTROPHILS PERCENT AUTO 71 % (41-73); Platelet Count 330 K/mm3 (150-400); RDW Standard Deviation 42.4 fL (35.1-46.3); Red Blood Cell Count 4.36 M/mm3 (4.30-5.90); White Blood Cell Count 7.88 K/mm3 (4.00-11.30)
[2022-06-21 05:09] LABS: Bun/Creatinine Ratio 34.4 (12.0-20.0); Calcium, Blood 8.9 mg/dL (8.5-10.1); Creatinine, Blood 0.58 mg/dL (0.60-1.20); Potassium, Blood 4.6 mmol/L (3.5-5.5)
--- NOTE | 2022-06-21 05:38 | NUR ---
BED AVAILABLE AT [facility] ORTHO UNIT ROOM 61-12. REPORT GIVEN TO LUDMILA GREEN. PT NOTIFIED OF PLAN AND AGREES TO TRANSFER. PT'S BROTHER NICOLE NOTIFIED OF UPDATE PER PT REQUEST.
--- NOTE | 2022-06-21 05:58 | NUR ---
PT PERSONAL BELONGINGS GATHERED AND PACKED UP WITH PT. [facility] CALLED FOR TRANSPORT AND SHOULD BE HERE IN APPROX 30 MINS.
[2022-06-21 06:26] LABS: SARS-Cov-2 (COVID-19) PCR, MMC NEGATIVE (NEGATIVE)
--- NOTE | 2022-06-21 06:39 | NUR ---
TRANSPORT ARRIVED TO [facility] OPERATOR PT. ALL PERSONAL BELONGINGS SENT WITH PT AND DISCHARGE PAPERWORK GIVEN TO TICKETING CLERK.
== END 2022-06-21 06:39 | disposition short-term general hospital (02) | DRG 560 ==
LOC: ER 14:24 → ERHOLD 14:25 → SURS 14:25 → ERHOLD 14:25 → SURS 06-04 15:30
PROVIDERS: Family Medicine; Internal Medicine; Physician Assistant; ADMIT Internal Medicine
PROC: 0SSBXZZ Reposition Left Hip Joint, External Approach (ICD-10-PCS; principal; 2022-06-03)
DX: T84.021A Dislocation of internal left hip prosthesis, initial encounter (principal); E87.1 Hypo-osmolality and hyponatremia; G61.81 Chronic inflammatory demyelinating polyneuritis; M21.372 Foot drop, left foot; M21.371 Foot drop, right foot; I10 Essential (primary) hypertension; K40.90 Unilateral inguinal hernia, without obstruction or gangrene, not specified as recurrent; F12.10 Cannabis abuse, uncomplicated; M19.90 Unspecified osteoarthritis, unspecified site; Z96.651 Presence of right artificial knee joint; Z20.822 Contact with and (suspected) exposure to COVID-19; X58.XXXA Exposure to other specified factors, initial encounter; Z79.899 Other long term (current) drug therapy; Z98.890 Other specified postprocedural states; Z79.891 Long term (current) use of opiate analgesic; Z79.811 Long term (current) use of aromatase inhibitors
CPT/HCPCS: 0241U; 27265; 36415; 73501; 73502; 73700; 80048; 80053; 83735; 85025; 96372; 96374-59; 96375-59; 97110; 97162; 99152; 99285-25; A9270; G0378; J1650; J1885; J2704; J3010; J7030; U0004

== ENCOUNTER 2023-04-30 09:55 | Inpatient (IN) | payer MEDICARE ==
[~2023-04-30] VITALS: Ht 182.9 cm; Wt 75.7 kg
[2023-04-30 10:39] LABS: Hematocrit 41.9 % (37.0-53.0); Mean Corpuscular HGB 30.5 pg (26.0-34.0); Mean Corpuscular HGB Conc 35.8 g/dL (31.5-36.5); Mean Corpuscular Volume 85 fL (80-100); Mean Platelet Volume 9.4 fL (9.1-12.4); Platelet Count 230 K/mm3 (150-400); RDW Coefficient Variation 13.1 % (11.7-14.2); RDW Standard Deviation 41.1 fL (35.1-46.3); Red Blood Cell Count 4.91 M/mm3 (4.30-5.90); White Blood Cell Count 8.32 K/mm3 (4.00-11.30)
[2023-04-30 11:02] LABS: BAND PERCENT MAN 32 % (0-8); BASOPHILS PERCENT MAN 0 % (0-2); EOSINOPHILS PERCENT MAN 0 % (0-6); LYMPHOCYTES ABSOLUTE MAN 0.24 K/mm3 (0.84-5.20); LYMPHOCYTES PERCENT MAN 3 % (21-46); METAMYELOCYTE ABSOLUTE MAN 0.16 K/mm3 (0.00-0.00); METAMYELOCYTE PERCENT MAN 2 % (0-0); MONOCYTES ABSOLUTE MAN 0.58 K/mm3 (0.16-1.47); MONOCYTES PERCENT MAN 7 % (4-13); NEUTROPHILS ABSOLUTE MAN 7.32 K/mm3 (1.96-9.15); SEG NEUTROPHILS PERCENT MAN 56 % (41-73); TOTAL CELLS COUNTED 100
[2023-04-30 11:57] LABS: Alanine Aminotransfer (ALT/SGP 34 U/L (12-78); Albumin, Blood 2.4 g/dL (3.4-5.0); Albumin/Globulin Ratio 0.6 (0.8-1.8); Alk Phos 65 U/L (50-136); Anion Gap 13 mmol/L (6-16); Aspartate Aminotrans (AST/SGOT 42 U/L (12-37); Bilirubin, Total 1.9 mg/dL (0.1-1.0); Blood Urea Nitrogen 28 mg/dL (8-24); Bun/Creatinine Ratio 30.6 (12.0-20.0); CO2, Blood 22 mmol/L (21-32); Calcium, Blood 8.6 mg/dL (8.5-10.1); Chloride, Blood 93 mmol/L (98-108); Creatinine, Blood 0.92 mg/dL (0.60-1.20); Glomerular Filtration Rate 91 (60-); Glucose, Blood 57 mg/dL (70-99); Potassium, Blood 3.5 mmol/L (3.5-5.5); Sodium, Blood 128 mmol/L (136-145); Total Protein, Blood 6.4 g/dL (6.4-8.2)
[2023-04-30 12:20] LABS: C-Reactive Protein, High Sens. >190.000 mg/L (0.000-3.000)
[2023-04-30 16:55] VITALS: BP 116/80
[2023-04-30 19:08] VITALS: BP 81/50
--- NOTE | 2023-04-30 19:09 | NUR ---
SHIFT SUMMARY PT ARRIVED FROM ED AT ABOUT 1630 AND WAS ORIENTED TO ROOM. A&OX4. PT C/O PAIN IN SCROTUM, LOWER BACK AND LEGS. MEDICATED PER EMAR WITH GOOD EFFECT. PT HAS EXTENSIVE SKIN BREAKDOWN ON SCROTUM AND COCCYX. OTHER WOUNDS NOTED ON HEAD, LEFT ELBOW AND RIGHT THOMPSON. PICTURES IN CHART. WOUNDS CLEANED AND NEW DRESSINGS APPLIED. VSS. REPORT GIVEN TO ONCOMING NURSE. BED IN LOWEST POSITION AND CALL LIGHT IN REACH.
[2023-04-30 19:12] VITALS: BP 97/63
--- NOTE | 2023-05-01 01:43 | NUR ---
RECEIVED CALL FROM LAB BLOOD CULTURE GRAM POSITIVE WITH COCCI IN CHAINS. MD NOTIFIED. PATIENT IS ON VANCOMYCIN AND ZOSYN. NO NEW ORDERS.
[2023-05-01 03:51] VITALS: BP 94/64
--- NOTE | 2023-05-01 04:50 | NUR ---
NOC SHIFT SUMMARY: BLOOD CULTURES POSITIVE-MD AWARE. CONTINUE VANCO AND ZOSYN. MORPHINE GIVEN TWICE. BLOOD SUGARS EVERY 4 HOURS. NS @125 ML/HR. CALLS APPROPRIATELY.
[2023-05-01 07:11] LABS: Hematocrit 34.6 % (37.0-53.0); Hemoglobin 12.7 g/dL (13.5-17.5); Mean Corpuscular HGB 30.3 pg (26.0-34.0); Mean Corpuscular HGB Conc 36.7 g/dL (31.5-36.5); Mean Corpuscular Volume 83 fL (80-100); Mean Platelet Volume 9.3 fL (9.1-12.4); Platelet Count 194 K/mm3 (150-400); RDW Coefficient Variation 13.4 % (11.7-14.2); RDW Standard Deviation 40.2 fL (35.1-46.3); Red Blood Cell Count 4.19 M/mm3 (4.30-5.90); White Blood Cell Count 9.97 K/mm3 (4.00-11.30)
[2023-05-01 07:32] VITALS: BP 108/66
[2023-05-01 07:36] LABS: BAND PERCENT MAN 17 % (0-8); BASOPHILS PERCENT MAN 0 % (0-2); EOSINOPHILS ABSOLUTE MAN 0.09 K/mm3 (0.00-0.68); EOSINOPHILS PERCENT MAN 1 % (0-6); LYMPHOCYTES ABSOLUTE MAN 0.29 K/mm3 (0.84-5.20); LYMPHOCYTES PERCENT MAN 3 % (21-46); METAMYELOCYTE ABSOLUTE MAN 0.29 K/mm3 (0.00-0.00); METAMYELOCYTE PERCENT MAN 3 % (0-0); MONOCYTES ABSOLUTE MAN 1.09 K/mm3 (0.16-1.47); MONOCYTES PERCENT MAN 11 % (4-13); NEUTROPHILS ABSOLUTE MAN 8.17 K/mm3 (1.96-9.15); SEG NEUTROPHILS PERCENT MAN 65 % (41-73); TOTAL CELLS COUNTED 100
[2023-05-01 07:37] LABS: Albumin, Blood 1.7 g/dL (3.4-5.0); Albumin/Globulin Ratio 0.4 (0.8-1.8); Bilirubin, Total 1.2 mg/dL (0.1-1.0); Bun/Creatinine Ratio 31.7 (12.0-20.0); Calcium, Blood 8.1 mg/dL (8.5-10.1); Creatinine, Blood 0.92 mg/dL (0.60-1.20); Globulin, Blood 3.8 g/dL (2.2-4.0); Total Protein, Blood 5.5 g/dL (6.4-8.2)
--- NOTE | 2023-05-01 12:13 | NUR ---
WOUND CARE ON ASSESSMENT SCROTUM IS DENUDED. XEROFORM PLACED OVER PARTIAL THICKNESS TISSUE LOSS, WOULD CONTINUE FOR 1-2 DAYS THEN APPLY SILICONE BARRIER CREAM 2-3X DAILY. PERINEUM WITH EXTENSIVE NECROCTIC TISSUE. THIS APPEARS BEYOND CONVENTIONAL WOUND CARE AND WOULD RECOMMEND SURGICAL CONSULT. PRIMARY RN TO NOTIFY PHYSICIAN
[2023-05-01 15:56] VITALS: BP 100/63
--- NOTE | 2023-05-01 18:24 | NUR ---
SHIFT SUMMARY PT A&OX4 AND PLEASANT. WOUND CARE NURSE , ANGELA, CONSULTED ON PT TODAY. PER ANGELA, PT'S WOUND ON BOTTOM OF SCROTUM WAS TOO EXTENSIVE FOR HER TO TREAT AND PT SHOULD HAVE SURGERY CONSULT. DR JEFFERSON NOTIFIED. DR WHITTINGTON WAS IN TO CONSULT ON PT THIS EVENING. DR JEFFERSON AND DR WHITTINGTON WOULD LIKE PT TO BE TRANSFERED TO A HOSPITAL WITH A UROLOGIST D/T POSSIBLE NEED FOR SURGERY ON SCORTUM. PT C/O PAIN AND MEDICATED PER EMAR. PT WENT DOWN FOR ANOTHER PELVIC CT SCAN AND HAD AN ULTRASOUND AT BEDSIDE. BP REMAINS SOFT. CONTINUING IV FLUIDS AND ABX. BED IN LOWEST POSITION AND CALL LIGHT IN REACH.
[2023-05-01 19:37] VITALS: BP 92/63
[2023-05-02 02:48] VITALS: BP 100/63
--- NOTE | 2023-05-02 04:36 | NUR ---
NOC SHIFT SUMMARY: CONTINUES ON IV ANTIBIOTICS FOR SCROTAL CELLULITIS. SCROTAL ULTRASOUND DONE YESTERDAY. MD WORKING ON TRANSFERRING PATIENT FOR UROLOGICAL SERVICES. PATIENT IS ALERT AND ORIENTED X4. PATIENT USES URINAL TO VOID. MORPHINE NEEDED FOR PAIN CONTROL. CALL LIGHT WITHIN REACH. BED IN LOW POSITION.
[2023-05-02 07:41] VITALS: BP 111/68
[2023-05-02 08:43] LABS: Hematocrit 36.1 % (37.0-53.0); Hemoglobin 12.9 g/dL (13.5-17.5); Mean Corpuscular HGB Conc 35.7 g/dL (31.5-36.5); Mean Corpuscular Volume 84 fL (80-100); Mean Platelet Volume 9.4 fL (9.1-12.4); Platelet Count 187 K/mm3 (150-400); RDW Standard Deviation 43.2 fL (35.1-46.3); White Blood Cell Count 20.59 K/mm3 (4.00-11.30)
[2023-05-02 09:11] LABS: BAND PERCENT MAN 18 % (0-8); BASOPHILS PERCENT MAN 0 % (0-2); EOSINOPHILS PERCENT MAN 0 % (0-6); LYMPHOCYTES % ATYPICAL MANUAL 1 % (0-0); LYMPHOCYTES ABSOLUTE MAN 0.41 K/mm3 (0.84-5.20); LYMPHOCYTES PERCENT MAN 1 % (21-46); MONOCYTES ABSOLUTE MAN 0.61 K/mm3 (0.16-1.47); MONOCYTES PERCENT MAN 3 % (4-13); NEUTROPHILS ABSOLUTE MAN 19.56 K/mm3 (1.96-9.15); SEG NEUTROPHILS PERCENT MAN 77 % (41-73); TOTAL CELLS COUNTED 100
[2023-05-02 09:32] LABS: Albumin, Blood 1.5 g/dL (3.4-5.0); Albumin/Globulin Ratio 0.4 (0.8-1.8); Bilirubin, Total 1.1 mg/dL (0.1-1.0); Calcium, Blood 8.1 mg/dL (8.5-10.1); Creatinine, Blood 0.75 mg/dL (0.60-1.20); Potassium, Blood 3.4 mmol/L (3.5-5.5); Total Protein, Blood 5.5 g/dL (6.4-8.2)
[2023-05-02 12:12] LABS: Vancomycin, Trough 24.7 ug/mL (5.0-10.0)
[2023-05-02 15:26] VITALS: BP 114/69
--- NOTE | 2023-05-02 17:38 | NUR ---
DAYSHIFT SUMMARY Patient alert & oriented x4, patient reports pain in scrotal area. Edema noted in scrotum & penis. endocrinology physician at bedside, and changed dressings. Xeroform applied to scrotum & absobent pad applied to periarea. Patient able to reposition self in bed. Surgeon assessed patient today, awaiting transfer to facility with urologist. IV ABX administred today. Vitals stable. Will continue plan of care.
[2023-05-03 03:35] VITALS: BP 108/73
--- NOTE | 2023-05-03 07:18 | NUR ---
SHIFT SUMMARY PATIENT A/Ox4, PAIN MANAGED PER AUG. CONTINUES ON IV ABX THERAPY. HAD LARGE LOOSE BM THIS AM, NOT MALODOROUS. PERICARE PROVIDED AND DSG CHANGED. NEW SACRAL DSG PLACED. NO ACUTE CHANGES NOTED OVERNIGHT. BED LOCKED AND IN LOWEST POSITION, CALL LIGHT WITHIN REACH.
[2023-05-03 07:19] VITALS: BP 108/75
[2023-05-03 09:48] LABS: Hematocrit 40.9 % (37.0-53.0); Hemoglobin 14.4 g/dL (13.5-17.5); Mean Corpuscular HGB 30.1 pg (26.0-34.0); Mean Corpuscular HGB Conc 35.2 g/dL (31.5-36.5); Mean Corpuscular Volume 86 fL (80-100); Mean Platelet Volume 9.5 fL (9.1-12.4); Platelet Count 211 K/mm3 (150-400); RDW Coefficient Variation 14.3 % (11.7-14.2); RDW Standard Deviation 45.3 fL (35.1-46.3); Red Blood Cell Count 4.78 M/mm3 (4.30-5.90); White Blood Cell Count 28.07 K/mm3 (4.00-11.30)
[2023-05-03 10:12] LABS: Vancomycin, Random 10.9 ug/mL
[2023-05-03 10:13] LABS: Albumin, Blood 1.8 g/dL (3.4-5.0); Albumin/Globulin Ratio 0.4 (0.8-1.8); Bilirubin, Total 1.5 mg/dL (0.1-1.0); Bun/Creatinine Ratio 24.8 (12.0-20.0); Calcium, Blood 8.6 mg/dL (8.5-10.1); Creatinine, Blood 0.65 mg/dL (0.60-1.20); Globulin, Blood 4.7 g/dL (2.2-4.0); Potassium, Blood 2.9 mmol/L (3.5-5.5); Total Protein, Blood 6.5 g/dL (6.4-8.2)
[2023-05-03 10:15] LABS: BAND PERCENT MAN 3 % (0-8); BASOPHILS PERCENT MAN 0 % (0-2); EOSINOPHILS PERCENT MAN 0 % (0-6); LYMPHOCYTES ABSOLUTE MAN 0.56 K/mm3 (0.84-5.20); LYMPHOCYTES PERCENT MAN 2 % (21-46); MONOCYTES ABSOLUTE MAN 0.28 K/mm3 (0.16-1.47); MONOCYTES PERCENT MAN 1 % (4-13); NEUTROPHILS ABSOLUTE MAN 27.22 K/mm3 (1.96-9.15); SEG NEUTROPHILS PERCENT MAN 94 % (41-73); TOTAL CELLS COUNTED 100
[2023-05-03 15:33] VITALS: BP 122/68
--- NOTE | 2023-05-03 16:48 | NUR ---
CALL TO TRANSFER [facility]- NO BEDS, ON DIVERT. [facility]- ON UROLOGY WAITLIST. CALL BACK IF PATIENT STATUS CHANGES. ANEL MELARA/[facility]CHU[facility]- PENDING CALL BACK FOR [facility] BED.
[2023-05-03 17:25] VITALS: BP 122/68
[2023-05-03 17:53] VITALS: BP 122/68
--- NOTE | 2023-05-03 17:57 | NUR ---
SHIFT SUMMARY: NO ACUTE EVENTS. REPEAT CT PELVIS COMPLETED. EDEMA AND ERYTHEMA HAS INCREASED; R DP PULSE NON PALPABLE, FOUND BY DOPPLER, SITE MARKED. POTASSIUM REPLACED. MEDICATED FOR PAIN X 1 AND WILL MEDICATE PRIOR TO COBRA TRANSFER. USING URINAL INDEPENDENTLY, BUT SPILLS D/T SEVERE OA IN BOTH HANDS. TOLERATING REGULAR DIET, DENIES NAUSEA. NO BM SINCE LAST NIGHT. [facility] TRANSFER TO [facility] PENDING. TELEPHONE REPORT GIVEN TO REBECCA Rodriguez RN AT 1740.
--- NOTE | 2023-05-03 19:14 | NUR ---
PATIENT PICKED UP BY [facility] AT 1854. FTF REPORT GIVEN TO EMT'S. PRE-MEDICATED PATIENT WITH MORPHINE 4 MG IV PRIOR TO TRANSFER. NO PERSONAL BELONGINGS LEFT BEHIND IN ROOM.
== END 2023-05-03 18:59 | disposition short-term general hospital (02) | DRG 872 ==
LOC: ER 09:55 → MEDS 13:29 → ERHOLD 13:29 → MEDS 16:27
PROVIDERS: Emergency Medicine; ADMIT Internal Medicine
DX: A40.0 Sepsis due to streptococcus, group A (principal); E87.20 Acidosis, unspecified; E87.1 Hypo-osmolality and hyponatremia; R65.20 Severe sepsis without septic shock; N49.2 Inflammatory disorders of scrotum; L89.159 Pressure ulcer of sacral region, unspecified stage; G47.00 Insomnia, unspecified; I10 Essential (primary) hypertension; M19.90 Unspecified osteoarthritis, unspecified site; G62.9 Polyneuropathy, unspecified; Z96.651 Presence of right artificial knee joint; Z96.643 Presence of artificial hip joint, bilateral; K40.90 Unilateral inguinal hernia, without obstruction or gangrene, not specified as recurrent; Z98.890 Other specified postprocedural states; F12.90 Cannabis use, unspecified, uncomplicated; Z79.899 Other long term (current) drug therapy
CPT/HCPCS: 36415; 72193; 76870; 80053; 80202; 82947; 83605; 85025; 85651; 86141; 87040; 87147; 93925; 96361; 96365-59; 96366; 96367; 96375-59; 99285-25; A9270; J1650; J2270; J2543; J3370; J3480; J7030; J7050; Q9967